=== PATIENT | female | born 1960 | race Caucasian/White ===

== ENCOUNTER 2022-11-25 11:28 | Outpatient (CLI) | payer BC, SELFPAY ==
--- NOTE | ~2022-11-25 | US_ITS ---
US thyroid INDICATION: Rocky's thyroiditis TECHNIQUE: Real-time sonographic images of the thyroid gland were obtained. COMPARISON: . No prior studies for comparison. FINDINGS: The right thyroid lobe measures 2.2 x 0.8 x 0.6 cm. The left thyroid lobe measures 1.4 x 0 .6 x 0.6 cm. There is normal echotexture and echogenicity throughout the thyroid gland. No discrete n odules identified. Normal vascular flow is present. IMPRESSION: 1. Atrophic thyroid gland without discrete mass. Reviewed, dictated and finalized at location B.
== END 2022-11-25 11:29 ==
PROVIDERS: PCP Emergency Medicine; Visit Provider Emergency Medicine
DX: E06.3 Autoimmune thyroiditis (principal)
CPT/HCPCS: 76536

== ENCOUNTER → 2023-02-22 10:23 | Outpatient (CLI) | payer BC, SELFPAY ==
--- NOTE | ~2023-02-22 | MM_ITS ---
EXAMINATION: MM screening olinda BI w kathie HISTORY: Screening TECHNIQUE: Craniocaudal and mediolateral oblique 3-D tomosynthesis images were obtained and synthetic 2-D images were generated. CAD analysis was submitted and interpreted. COMPARISON: 06/24/2009 BREAST PARENCHYMAL COMPOSITION: There are scattered areas of fibroglandular density. FINDINGS: There is no evidence of suspicious mass, calcification, or architectural distortion to sugg est malignancy in either breast. There has been no suspicious interval change. IMPRESSION: 1. No mammographic evidence of malignancy. 2. Recommend routine screening mammography in one year. BI-RADS Category 1: Negative Reviewed, dictated and finalized at location A.
--- NOTE | ~2023-02-22 | DEXA_ITS ---
Bone Density Report Name: KIRK MELO Age: 62 Sex: Female Ethnicity: White Date of : 1960 Indication: postmenopausal; screening for osteoporosis; Referring Provider: STUART PRIDE Study: Bone densitometry was performed. Exam Date: February 22, 2023 Accession number: [id number] Bone Density: Region BMD T-score Z-score Classification AP Spine (L1-L4) 0.826 -2.0 -0.5 Osteopenia Femoral Neck (Left) 0.581 -2.4 -1.0 Osteopenia Total Hip (Left) 0.754 -1.5 -0.5 Osteopenia Femoral Neck (Right) 0.631 -2.0 -0.6 Osteopenia Total Hip (Right) 0.759 -1.5 -0.5 Osteopenia Total Hip Mean 0.757 -1.5 -0.5 Osteopenia World Health Organization criteria for BMD impression classify patients as: Normal (T-score at or above -1.0), Osteopenia (T-score between -1.0 and -2.5), or Osteoporosis (T-score at or below -2.5). 10-year Fracture Risk(1): Major Osteoporotic Fracture 11% Hip Fracture 1.9% Reported Risk Factors: [place] (), Neck BMD=0.581, BMI=22.5 (1) FRAX(R) Version 3.08. Fracture probability calculated for an untreated patient. Fracture probability may be lower if the patient has received treatment. Clinical Information Provided by Patient: Patient maximum height was 61.7 Menopause Age: 54 Drinks caffeinated beverages Onset of menses at age 18 Number of children 3 Impression: The patient has low bone mass, based on the Left Femoral Neck T-score. The patient has an estimated ten-year risk of hip fracture of 1.9% and an estimated ten-year risk of major fracture of 11%, based on the WHO FRAX algorithm. Discussion: BONE DENSITY IS LOW AT ONE OR MORE SKELETAL SITES. This patient's lowest T-score is low at one or more skeletal sites. It meets the World Health Organization's (WHO) criteria for ?low bone mass? (T-score between -1.0 and -2.5). The patient's 10-year risk of fracture as calculated by FRAX is less than the threshold where pharmacological therapy is recommended by the National Osteoporosis Foundation (NOF). However, all treatment decisions require clinical judgment and consideration of individual patient factors, including patient preferences, comorbidities, previous drug use, risk factors not captured in the FRAX model (e.g., frailty, falls, vitamin D deficiency, increased bone turnover, interval significant decline in bone density) and possible under or overestimation of fracture risk by FRAX. The patient should follow a healthful lifestyle (good nutrition with adequate calcium and vitamin D, and appropriate weight-bearing exercise). Follow-Up: Consider repeating this study in 2 to 3 years to reassess this patient's status, or sooner if there is some new clinical indication. Reported by: MOHAN on 02/22/2023 11:31:00 AM. Reviewed, dictated
== END ==
PROVIDERS: PCP Emergency Medicine; Visit Provider Emergency Medicine
DX: Z12.31 Encounter for screening mammogram for malignant neoplasm of breast (principal); N95.0 Postmenopausal bleeding; M85.89 Other specified disorders of bone density and structure, multiple sites
CPT/HCPCS: 77063; 77067; 77080